=== PATIENT | female | born 1975 | race African-American/Black ===

== ENCOUNTER 2017-09-21 12:37 | Outpatient (CLI) | payer OTHER ==
[2017-09-21 13:22] LABS: Bilirubin Negative (Negative); Blood, Urine Negative (Negative); Glucose, Urine (Dipstick) Negative (Negative); Ketone, Urine Negative (Negative); Nitrite Negative (Negative); Protein, Urine (Dipstick) Negative (Neg-Trace)
[2017-09-21 13:24] LABS: Hematocrit 38.1 % (36.0-47.0); Mean Platelet Volume 8.6 fL (7.4-10.4); Red Blood Cell (RBC) Count 4.53 mill/uL (4.20-5.40); White Blood Cell (WBC) Count 9.7 thou/uL (4.8-10.8)
[2017-09-21 13:33] LABS: Bacteria/HPF 1+ HPF (None Seen); Hyaline Casts/LPF 0-3 HYALINE CAST LPF (0-3 Hyaline); RBC/HPF 0-3 HPF (0-3); WBC/HPF 0-3 HPF (0-3)
== END 2017-09-21 12:38 | disposition home or self-care (01) ==
LOC: LABBT 12:37
PROVIDERS: ATTEND Obstetrics & Gynecology
DX: Z01.812 Encounter for preprocedural laboratory examination (principal); D25.9 Leiomyoma of uterus, unspecified; N92.0 Excessive and frequent menstruation with regular cycle
CPT/HCPCS: 81001; 84703; 85027

== ENCOUNTER 2017-09-27 05:42 | Inpatient (IN) | payer OTHER ==
[2017-09-21 13:08] VITALS: BMI 58.0
[2017-09-27] MEDS ORDERED: CEFAZOLIN/Water 2 GM/20 ML SYRINGE ONE (06:33)
[2017-09-27] MEDS ORDERED: Thrombin 5000 UNITS/5 ML VIAL ONE (06:35)
[2017-09-27] MEDS ORDERED: Calcium Chloride 1 GM/10 ML Abboject SYRINGE ONE (06:35)
[2017-09-27] MEDS ORDERED: Bupivacaine/Epinephrine 0.25% 30 ML VIAL ONE (06:35)
[2017-09-27] MEDS ORDERED: Midazolam HCl 2 mg/2 ml Vial ONE (06:55)
[2017-09-27] MEDS ORDERED: Fentanyl 100 MCG/2 ML VIAL ONE ×3 (06:55→12:07)
[2017-09-27] MEDS ORDERED: Meperidine HCl/PF 25 MG/ML VIAL ONE (12:12)
[2017-09-27] MEDS ORDERED: Ondansetron HCl/PF 4 MG/2 ML Vial IVP PRN ×2 (12:16→13:09)
[2017-09-27] MEDS ORDERED: Promethazine HCl 25 MG/ML VIAL IM/IV PRN (12:16)
[2017-09-27] MEDS ORDERED: Meperidine HCl/PF 25 MG/ML VIAL IV PRN (12:16)
[2017-09-27] MEDS ORDERED: Non-Formulary Medication 1 EACH PO PRN (12:16)
[2017-09-27] MEDS ORDERED: Meperidine HCl/PF 25 MG/ML VIAL SLOW IVP PRN (12:16)
[2017-09-27] MEDS ORDERED: HYDROmorphone 2 MG/ML VIAL SLOW IVP PRN (12:16)
[2017-09-27] MEDS ORDERED: Acetaminophen/Codeine 30-300mg Tablet PO PRN (13:09)
[2017-09-27] MEDS ORDERED: Zolpidem Tartrate 5 MG TAB PO PRN (13:09)
[2017-09-27] MEDS ORDERED: Acetaminophen 325 MG TAB PO PRN (13:09)
[2017-09-27] MEDS ORDERED: diphenhydrAMINE 25 MG CAP PO PRN (13:09)
[2017-09-27] MEDS ORDERED: Bisacodyl 10 MG SUPP PR PRN (13:09)
[2017-09-27] MEDS: Ibuprofen 800 MG TAB PO SCH (14:01)
[2017-09-27] MEDS: Ketorolac Tromethamine 30 MG/ML VIAL IVP SCH ×3 (14:06→23:49)
[2017-09-27] MEDS: Lactated Ringer's 1,000 ML IV SCH (14:06)
[2017-09-27] MEDS ORDERED: Dexamethasone 20 MG/5 ML VIAL ONE (14:16)
[2017-09-27] MEDS ORDERED: Ondansetron HCl/PF 4 MG/2 ML Vial ONE (14:16)
[2017-09-27] MEDS ORDERED: diphenhydrAMINE 50 MG/ML VIAL ONE (14:16)
[2017-09-27] MEDS ORDERED: Metoclopramide HCl 10 MG/2 ML VIAL ONE (14:16)
[2017-09-27] MEDS ORDERED: Esmolol 100 MG/10 ML VIAL ONE (14:16)
[2017-09-27] MEDS ORDERED: Ketorolac Tromethamine 30 MG/ML VIAL ONE (14:16)
[2017-09-27] MEDS ORDERED: Propofol 200 MG/20 ML VIAL ONE (14:16)
[2017-09-27] MEDS ORDERED: Lidocaine 1% PF 5 ML VIAL ONE (14:16)
[2017-09-27] MEDS: Acetaminophen/Codeine 30-300mg Tablet PO PRN (23:49)
[2017-09-27] MEDS: Simethicone Chewable 80 MG TAB PO PRN (23:51)
[2017-09-28] MEDS: Lactated Ringer's 1,000 ML IV SCH ×3 (00:12→14:13)
[2017-09-28] MEDS: Ibuprofen 800 MG TAB PO SCH ×4 (00:13→14:12)
[2017-09-28 05:37] LABS: Mean Platelet Volume 8.5 fL (7.4-10.4); Red Blood Cell (RBC) Count 3.73 mill/uL (4.20-5.40); White Blood Cell (WBC) Count 11.9 thou/uL (4.8-10.8)
[2017-09-28] MEDS: Ketorolac Tromethamine 30 MG/ML VIAL IVP SCH ×3 (06:06→18:19)
[2017-09-28] MEDS: Acetaminophen/Codeine 30-300mg Tablet PO PRN ×3 (07:42→19:46)
[2017-09-28] MEDS: Simethicone Chewable 80 MG TAB PO PRN (17:38)
[2017-09-28] MEDS ORDERED: Adacel (T-DAP) 0.5 ML VIAL IM ONE (18:15)
[2017-09-28] MEDS ORDERED: Lanolin Ointment 7 GM TUBE TOP PRN (18:15)
[2017-09-28] MEDS ORDERED: LR / Pitocin 40 units/1000 ml 1,000 ML IV SCH (18:15)
[2017-09-28] MEDS ORDERED: Benzocaine/Menthol 20-0.5% 60 ML CAN TOP PRN (18:15)
[2017-09-28] MEDS ORDERED: Bisacodyl 10 MG SUPP PR PRN (18:15)
[2017-09-28] MEDS ORDERED: diphenhydrAMINE 25 MG CAP PO PRN (18:15)
[2017-09-28] MEDS ORDERED: Ondansetron HCl/PF 4 MG/2 ML Vial IVP PRN (18:15)
[2017-09-28] MEDS ORDERED: Zolpidem Tartrate 5 MG TAB PO PRN (18:15)
[2017-09-28] MEDS ORDERED: Misoprostol 200 MCG TAB VAG SCH (18:15)
[2017-09-28] MEDS ORDERED: Acetaminophen/Codeine 30-300mg Tablet PO PRN ×2 (18:15)
[2017-09-28] MEDS ORDERED: Preparation H Ointment 28 GM TUBE PR PRN (18:15)
[2017-09-28] MEDS ORDERED: Milk Of Magnesia 30 ML UDCUP PO PRN (18:15)
[2017-09-28] MEDS ORDERED: Docusate (Surfak) 240 MG CAP PO SCH (21:00)
[2017-09-28] MEDS ORDERED: Ibuprofen 800 MG TAB PO SCH (22:00)
[2017-09-29] MEDS: Acetaminophen/Codeine 30-300mg Tablet PO PRN ×2 (00:29→09:03)
[2017-09-29] MEDS: Ibuprofen 800 MG TAB PO SCH ×2 (00:30→07:25)
[2017-09-29] MEDS: Simethicone Chewable 80 MG TAB PO PRN (00:30)
[2017-09-29 05:25] LABS: Hematocrit 30.2 % (36.0-47.0); Mean Platelet Volume 8.4 fL (7.4-10.4); Red Blood Cell (RBC) Count 3.59 mill/uL (4.20-5.40)
[2017-09-29] MEDS ORDERED: Ferrous Sulfate 325 MG TAB PO SCH (08:00)
[2017-09-29 08:02] VITALS: BP 131/75
[2017-09-29 08:09] VITALS: TEMP 97.2
[2017-09-29] MEDS ORDERED: Prenatal Vitamin 1 TAB PO SCH (09:00)
--- NOTE | 2017-09-29 13:49 | OP ---
DATE OF PROCEDURE: 09/27/2017 ATTENDING STAFF PHYSICIAN: Matthew Fabian M.D. SURGEON: Matthew Fabian M.D. PREOPERATIVE DIAGNOSES: 1. Menorrhagia. 2. Severe dysmenorrhea. 3. Abdominal pelvic pain. 4. Uterine fibroids. 5. Adenomyosis. POSTOPERATIVE DIAGNOSES: 1. Menorrhagia. 2. Severe dysmenorrhea. 3. Abdominal pelvic pain. 4. Uterine fibroids. 5. Adenomyosis. 6. Extensive abdominal pelvic adhesions. PROCEDURES PERFORMED. 1. Diagnostic laparoscopy. 2. Extensive lysis of adhesions. 3. Robotic hysterectomy. 4. Bilateral salpingectomy. 5. Cystoscopy. 6. Autologous hemocyte tissue grafting (Plasmax). ANESTHESIA: General endotracheal. FINDINGS: 1. Uterine sound to 14 cm with enlarged uterus and findings consistent with fibroids and adenomyosis . 2. Extensive abdominal pelvic adhesions - omentum and bowel to the abdominal wall secondary to previ ous umbilical hernia repair with mesh, bilateral tubo-ovarian, anterior cul-de-sac secondary to histo ry of prior C-sections x3. 3. Normal bladder at cystoscopy with no pathology identified and patent ureters. COMPLICATIONS: None. SPECIMENS REMOVED: Cervix, uterus, fallopian tubes. BLOOD LOSS: 200 mL. PROCEDURE: After thorough consent and counseling, Ms. Ordaz was taken to the operating room and adeq uate level of anesthesia was obtained via general endotracheal anesthesia. A pelvic examination unde r anesthesia was performed. Exam was difficult secondary to the patient's body habitus (5 foot 0 inc hes and 310 pounds). The cervix was noted to be small and nulliparous. The uterus was enlarged and could be palpated above the pubic symphysis once the patient was relaxed. There was no fixation or n odularity in the cul-de-sac noted. Of significance, the patient had a subumbilical incision that was approximately 7 cm long from an open umbilical hernia repair with mesh. For this reason, the decisi on was made to proceed with diagnostic laparoscopy using an entry site above the umbilicus. The sammy ent was then prepped and draped in sterile fashion for both vaginal and abdominal surgery. Attention was then turned to performing the surgical procedure. A weighted speculum was placed in the vaginal canal and visualization of the cervix was obtained. A single-tooth tenaculum was placed on the anterior lip of the cervix for traction. The uterus sounded to 14 cm. A stay ligature of 0 Vicryl suture was placed on the cervix at the 3 o'clock and 9 o'cloc k position. Using Layne dilators, serial dilatation was performed. The BRENDA uterine manipulator was then placed within the endometrial cavity and the balloon was inflated. The cervical collar was car efully seated around the cervix. The stay ligature was then affixed to the BRENDA uterine manipulator. A St was placed in the bladder, which was noted to be draining clear urine. The vaginal balloon was then inflated. The speculum was removed from the vagina. Attention was then turned to performi ng the laparoscopic portion of the surgery. A supraumbilical incision was made approximately 4 cm above the umbilicus. The Veress needle was alejandra norris transabdominally with the usual safeguards carried out. Hanging drop water technique was utilize d to ensure proper placement of the Veress needle. Using CO2 gas as an insufflation medium, an adequ ate pneumoperitoneum was obtained using obese parameters. A 5 mm trocar and sleeve was then carefull y placed transabdominal with usual safeguards carried out. The 5 mm laparoscope was then carefully p laced transabdominally and visualization of the abdomen and the pelvis was obtained. There was a den se wall of omental and bowel adhesions noted directly below the umbilicus at the site where the mesh hernia repair had previously been performed. There were also omental and bowel adhesions noted throu ghout the lower abdomen. Photodocumentation was performed. We were able to visualize the site for l ateral trocar placement and this was performed under direct laparoscopic visualization utilizing illu mination technique to avoid vascular injuries. The lateral ports were then carefully placed with usu al safeguards carried out under direct visualization. The electrosurgical EndoShears were then used to perform the extensive lysis of adhesions, freeing the omentum, small bowel, and colon from the ant erior abdominal wall. Care was taken to use minimal thermal energy to avoid any inadvertent bowel in jury or thermal spread. Using the traction countertraction technique, enterolysis was performed free ing the adhesions and bowel from the anterior abdominal wall. There were also multiple filmy adhesio ns from the omentum to the anterior abdominal wall noted laterally, probably secondary to the previou s deliveries. The uterus was also noted to be densely adherent to the anterior abdominal wa ll by the adhesions from the descending colon to the fundus of the uterus and to the anterior abdomin al wall. Once again, care was taken to avoid thermal spread using meticulous enterolysis techniques. The extensive lysis of adhesions and enterolysis took greater than 2 hours to perform. The bowel w as carefully inspected and noted to be intact with no evidence of any inadvertent bowel injury. Hemo stasis was obtained on the omentum. Once the adhesions were all taken down, the uterus was elevated out of the pelvis utilizing the BRENDA uterine manipulator. The uterus measured approximately 12-14 we eks in size. The patient was noted to be status post a tubal ligation. The ovaries were adherent to the pelvic sidewalls bilaterally with filmy adhesions. There was essentially obliteration of the an terior cul-de-sac secondary to the patient's history of previous deliveries. The distal end of the fallopian tube was grasped on the right and followed to its fimbriated end. The tube was the n grasped at the tubo-ovarian ligament, crossclamped, coagulated and transected. Dissection was capps ied out through the mesosalpinx until the right fallopian tube was free. The same procedure was perf ormed on the left. The tubes were then removed from the operative field. Attention was then turned to performing lysis of adhesions and creation of a bladder flap anteriorly to avoid bladder injury. The bladder was very carefully taken down anteriorly and inferiorly. Once free from the uterus, the round ligament was grasped on the right, crossclamped, coagulated and transected. The vesicouterine peritoneum was then carefully taken down anteriorly and inferiorly in multiple passes. The same proc edure was performed on the left. The utero-ovarian ligament and vessels were then carefully isolated , crossclamped, coagulated and transected bilaterally. Using this same technique, serial pedicles we re taken through the broad ligament-cardinal ligament complex down to the level of the uterine vessel s bilaterally. The uterine vessels were carefully skeletonized bilaterally. Again, the bladder flap was carefully taken down, moving the bladder well out of the operative planes. Because of the exten sive adhesions, the bladder was instilled with warm normal saline to better identify the edges of the bladder. There were essentially no surgical planes which were easily defined secondary to the adhes ions from the previous deliveries. Once it was felt that the bladder was completely free, t he vessels were coagulated and transected bilaterally. During this process, the ureters were identif ied on the pelvic sidewalls and noted to be traversing while in the operative field. Once the bladde r was completely taken down, the endopelvic fascia was carefully circumscribed sharply using the elec trosurgical EndoShears. The vaginal canal was then entered sharply and the cervix and uterus were re moved from the remaining support structures. Once free, the uterus was advanced into the vagina to m aintain a pneumoperitoneum. The pelvis was then irrigated with copious amount of warm normal saline. The vaginal cuff was then closed with a running locking ligature of 0-Vicryl V-Loc suture. Good cu ff closure and integrity was noted. Hemostasis was obtained with meticulous Bovie cauterization. Th e pelvis was irrigated with copious amount of warm normal saline. All surgical sites were carefully examined and noted to be hemostatic. The ureters were carefully inspected once again and noted to be traversing well out of the operative planes. The upper abdomen was carefully irrigated with copious amount of warm normal saline. All surgical sites were once again noted to be hemostatic. Because o f the extensive dissection and lysis of adhesions, autologous hemocyte tissue grafting was performed. Platelet poor plasma was injected over the omentum and the mesh anteriorly on the abdominal wall wh ere previous hernia closure was performed. Platelet poor plasma was injected over the vaginal cuff a nd the bladder where the hysterectomy was performed. Once again, photodocumentation was performed. Attention was then turned to performing closure of the incisional porch. Using the suture guide and the GraNee needle, a 0 Vicryl suture was placed at the supraumbilical port site. Care was taken to incorporate the fascia utilizing the suture guide and a 0 Vicryl suture. T his was performed without difficulty. The other trocars and gas were removed from the abdomen. The incisions were then closed with a subcutaneous ligature of 2-0 plain and subcuticular ligatures of 4- 0 Monocryl. Each incision was then dressed with Dermabond. Lap, sponge, and needle counts were shannon ect x3. Estimated blood loss during this portion of the surgery was approximately 200 mL. Attention was then turned to performing postoperative cystoscopy to ensure integrity of the bladder. The patient was given an amp of methylene blue intravenously by the Anesthesia team. The cervix and uterus were removed from the vaginal canal. The St was removed from the bladder, which was noted to be draining clear urine. The cystoscope was then placed within the bladder using warm normal sali ne as an insufflation medium. The landmarks of the bladder were identified. The bladder was careful ly inspected and there was no evidence of any inadvertent bladder injury upon removal of the cervix a nd uterus and lysis of adhesions. The ureters were carefully identified and noted to be spilling jerry e urine shortly after administration of the blue dye. Photodocumentation was performed. The cystosc ope was then removed from the bladder. The St was replaced which was noted to be draining blue ur ine. The patient was then awakened, extubated, and taken to postanesthesia care unit in good conditi on. Immediately following surgery, the patient and family were made aware of the surgical procedure and operative findings. Questions were answered to their satisfaction.
--- NOTE | 2017-09-29 22:53 | DIS ---
DATE OF ADMISSION: 09/27/2017 DATE OF DISCHARGE: 09/29/2017 ADMITTING DIAGNOSES: 1. Menorrhagia. 2. Severe dysmenorrhea. 3. Abdominopelvic pain. 4. Findings consistent with uterine fibroids and adenomyosis. POSTOPERATIVE DIAGNOSES: 1. Menorrhagia. 2. Severe dysmenorrhea. 3. Abdominopelvic pain. 4. Findings consistent with uterine fibroids and adenomyosis. 5. Extensive abdominopelvic adhesions. PROCEDURES PERFORMED: 1. Diagnostic laparoscopy. 2. Robotic hysterectomy. 3. Bilateral salpingectomy. 4. Extensive lysis of adhesions. 5. Autologous hemocyte tissue grafting. 6. Cystoscopy. DISCHARGE MEDICATIONS: 1. Motrin 800 mg 1 tablet p.o. q.8 hours x5 days scheduled, then b.i.d. x5 days scheduled, then once daily x5 days, then as needed q.8 hours p.r.n. cramps. 2. Tylenol No. 3 one tablet p.o. q.4 hours p.r.n. pain. 3. Duricef 500 mg 1 p.o. b.i.d. x7 days. 4. Diflucan 1 tablet weekly x3. INSTRUCTIONS: 1. No heavy lifting greater than 10-15 pounds. 2. No driving on pain medications. 3. Pelvic rest x6 weeks (no intercourse, douching, or tampons). 4. Notify physician for temperature greater than 100.6, severe abdominal pain or back pain, signs or symptoms of incisional infection, severe vaginal bleeding, or as necessary. 5. Follow up in 2 weeks for postoperative evaluation. HOSPITAL COURSE: Ms. Libby Ordaz is a pleasant 41-year-old black female, G3, P3, who is followed i n my clinic for gynecologic care. Libby was admitted to [facility] on the morning of 09/27/2017 with a diagnosis of menorrhagia and severe dysmenorrhea secondary to uterine f ibroids and findings consistent with adenomyosis. The patient had undergone a long trial of conserva tive medical therapy. In addition, the patient had previously undergone abdominal hernia repair with mesh and was having severe abdominopelvic pain in the site where that surgery had been performed. T he patient was taken to the operating room where she underwent a diagnostic laparoscopy, extensive ly sis of adhesions, robotic hysterectomy, bilateral salpingectomy, autologous hemocyte tissue grafting, and cystoscopy without problems or complications. In total, the surgery took in excess of 4 hours. Please see the operative report for summary. Libby had an uneventful and uncomplicated postoperative stay. Because of the extensive surgery, we were slow to advance her diet as she did have some upset stomach. She had some abdominal pain with nausea on the night of surgery, which resolved. She was unable to advance her diet until regular on the afternoon of the first postoperative day. For this reason, decision was made to admit her for a second night and observe her closely. With this additional time, she quickly defervesced and felt mu ch better on the morning of the second postoperative day. She was discharged home on the morning of the second postoperative day with the above noted prescriptions and precautions. She was ambulating, voiding, and tolerating p.o. well. She had no nausea at the time of discharge. She walked in the h all several times and had normal activity levels. She was given strict precautions and will follow u p with us in 2 weeks for postoperative evaluation. The patient was very appreciative of the care juanita massimod here at [facility] and she will follow up as scheduled.
== END 2017-09-29 10:20 | disposition home or self-care (01) | DRG 743 ==
LOC: SDC 05:42 → 3SE 10:30
PROVIDERS: ADMIT Obstetrics & Gynecology; ATTEND Obstetrics & Gynecology
PROC: 0UT94ZZ Resection of Uterus, Percutaneous Endoscopic Approach (ICD-10-PCS; principal; 2017-09-27)
PROC: 0UTC4ZZ Resection of Cervix, Percutaneous Endoscopic Approach (ICD-10-PCS; 2017-09-27)
PROC: 0UT74ZZ Resection of Bilateral Fallopian Tubes, Percutaneous Endoscopic Approach (ICD-10-PCS; 2017-09-27)
PROC: 0JR Subcutaneous Tissue and Fascia, Replacement (ICD-10-PCS; 2017-09-27)
PROC: 0TJB8ZZ Inspection of Bladder, Via Natural or Artificial Opening Endoscopic (ICD-10-PCS; 2017-09-27)
PROC: 0JBB3ZZ Excision of Perineum Subcutaneous Tissue and Fascia, Percutaneous Approach (ICD-10-PCS; 2017-09-27)
PROC: 8E0W0CZ Robotic Assisted Procedure of Trunk Region, Open Approach (ICD-10-PCS; 2017-09-27)
DX: D25.9 Leiomyoma of uterus, unspecified (principal); K66.0 Peritoneal adhesions (postprocedural) (postinfection); N80.0 Endometriosis of uterus; N92.0 Excessive and frequent menstruation with regular cycle; N94.6 Dysmenorrhea, unspecified
CPT/HCPCS: 36415; 85027; 88307; J0131; J1100; J1170; J1200; J1885; J2001; J2175; J2250; J2405; J2704; J2765; J3010; Q9968

== ENCOUNTER 2017-10-13 11:35 | Outpatient (CLI) | payer OTHER ==
--- NOTE | 2017-10-13 13:24 | RAD ---
LEFT RIBS SERIES: Comparison: None. History: Bent over three days ago and felt a pop with left lateral rib pain. FINDINGS: Three views of the left ribs shows no evidence of acute fracture or dislocation. No expansile rib les ions are seen. No underlying pneumothorax or pleural effusion are seen. IMPRESSION: No significant left rib abnormality. POS: [facility]
== END 2017-10-13 11:36 | disposition home or self-care (01) ==
LOC: SCSRAD 11:35
PROVIDERS: ATTEND Nurse Practitioner Family
DX: R07.81 Pleurodynia (principal)

== ENCOUNTER 2018-03-02 12:54 | Outpatient (CLI) | payer OTHER ==
--- NOTE | 2018-03-02 13:56 | RAD ---
LEFT FOOT THREE VIEWS: HISTORY: A 42-year-old female with a history of left foot pain for two weeks without known trauma. FINDINGS: No fracture, dislocation, or other significant acute osseous abnormality. Small calcaneal Achilles e nthesophyte. IMPRESSION: Mild degenerative change without acute fracture or dislocation. POS: [facility]
== END 2018-03-02 12:55 | disposition home or self-care (01) ==
LOC: SCSRAD 12:54
PROVIDERS: ATTEND Nurse Practitioner Family
DX: M79.672 Pain in left foot (principal); M19.072 Primary osteoarthritis, left ankle and foot

== ENCOUNTER 2018-06-05 08:38 | Outpatient (CLI) | payer OTHER ==
--- NOTE | 2018-06-05 09:11 | RAD ---
PA AND LATERAL CHEST: History: Cough. FINDINGS: The heart size is borderline. The lungs are well expanded without lobar consolidation, pneumothorax, nirmal edema, or pleural effusions. No acute osseous abnormalities are seen. IMPRESSION: No acute process. POS: [facility]
== END 2018-06-05 08:39 | disposition home or self-care (01) ==
LOC: SCSRAD 08:38
PROVIDERS: ATTEND Nurse Practitioner Family
DX: J40 Bronchitis, not specified as acute or chronic (principal)
CPT/HCPCS: 71046

== ENCOUNTER 2018-08-25 12:43 | Outpatient (CLI) | payer OTHER | END 2018-08-25 12:44 | disposition home or self-care (01) | LOC: DTY/OP 12:43 | PROVIDERS: ATTEND Specialist | DX: Z01.818 Encounter for other preprocedural examination (principal); E66.01 Morbid (severe) obesity due to excess calories | CPT/HCPCS: 97802 ==

== ENCOUNTER 2018-10-09 15:00 | Inpatient (IN) | payer OTHER ==
[2018-10-12] MEDS ORDERED: Heparin 5,000 UNITS/ML VIAL ONE (06:17)
[2018-10-12] MEDS ORDERED: Ketorolac Tromethamine 30 MG/ML VIAL ONE (06:18)
[2018-10-12] MEDS ORDERED: Scopolamine 1.5 mg/72 hour Patch ONE (06:19)
[2018-10-12] MEDS ORDERED: cefOXitin Sodium/Dextrose,Iso 2 GM in Premix Bag 1 BAG IVPB SCH (06:30)
[2018-10-12] MEDS ORDERED: Fentanyl 250 MCG/5 ML VIAL ONE (06:31)
[2018-10-12] MEDS ORDERED: Bupivacaine/Epinephrine 0.25% 30 ML VIAL ONE (06:31)
[2018-10-12] MEDS ORDERED: Midazolam HCl 2 mg/2 ml Vial ONE (06:58)
[2018-10-12] MEDS ORDERED: Promethazine HCl 25 MG/ML VIAL SLOW IVP PRN (07:09)
[2018-10-12] MEDS ORDERED: Ondansetron HCl/PF 4 MG/2 ML Vial IVP PRN (07:09)
[2018-10-12] MEDS ORDERED: Promethazine HCl 25 MG/ML VIAL IM PRN ×2 (07:09→11:18)
[2018-10-12] MEDS ORDERED: PHENYLEPHRINE-NS 100 MCG/ML 10 ML SYRINGE ONE ×2 (08:42→13:16)
[2018-10-12] MEDS ORDERED: Fentanyl 100 MCG/2 ML VIAL ONE ×2 (08:58→10:03)
[2018-10-12] MEDS ORDERED: Promethazine HCl 25 MG/ML VIAL ONE (10:39)
[2018-10-12] MEDS ORDERED: Hydrocodone-Acetamin 15 ML UDCUP PO PRN (11:18)
[2018-10-12] MEDS ORDERED: Dextrose 5% in Water 1,000 ML IV PRN (11:18)
[2018-10-12] MEDS ORDERED: diphenhydrAMINE 50 MG/ML VIAL IVP PRN (11:18)
[2018-10-12] MEDS ORDERED: Dextrose 50% Abboject 50 ML SYRINGE SLOW IVP PRN (11:18)
[2018-10-12] MEDS ORDERED: hydrALAZINE 20 MG/ML VIAL SLOW IVP PRN (11:18)
[2018-10-12] MEDS ORDERED: Ondansetron PF 4 MG/2 ML Vial IVP PRN (11:18)
[2018-10-12] MEDS ORDERED: Morphine 4 MG/ML VIAL SLOW IVP PRN (11:18)
[2018-10-12] MEDS: Acetaminophen 1,000 MG in Premix Bag 1 BAG IVPB SCH ×3 (11:41→23:19)
[2018-10-12] MEDS: Ketorolac Tromethamine 30 MG/ML VIAL IVP SCH ×3 (11:45→23:19)
[2018-10-12] MEDS: D5 1/2 NS w/20 mEq KCL 1,000 ML IV SCH ×2 (11:49→18:29)
--- NOTE | 2018-10-12 13:04 | OP ---
DATE OF PROCEDURE: 10/12/2018 PREOPERATIVE DIAGNOSIS: Morbid obesity. POSTOPERATIVE DIAGNOSIS: Morbid obesity. PROCEDURE PERFORMED: Laparoscopic sleeve gastrectomy using the ViSiGi device. ANESTHESIA: General endotracheal per Dr. Shantel Sewell. INDICATIONS: The patient is a 42-year-old morbidly obese black female. She has undergone preoperative evaluation and education and presents at this time for sleeve gastrectomy. She has had appropriate preoperative weight loss per my request. DESCRIPTION OF OPERATION: Informed consent was obtained. The patient was taken to the operating room where general endotracheal anesthesia was obtained with the patient in supine position. Abdomen was prepped with ChloraPrep and draped in sterile fashion. Local anesthetic was infiltrated and 5 mm supraumbilical incision was created through which Veress needle was passed to the peritoneal cavity and pneumoperitoneum established using carbon dioxide up to a pressure of 15 mmHg. A 5 mm trocar port was passed through this same incision. Laparoscopic camera was passed through this port. Under direct vision, 4 additional ports were placed including bilateral 5 mm subcostal ports, a 12 mm right paramedian port and a 15 mm left paramedian port. A 5 mm epigastric incision was created through which Nathansen retractor was passed into the abdominal cavity and used to retract the left lobe of the liver. The patient was placed into reverse Trendelenburg position. The ViSiGi device was advanced within the stomach and used to decompress this. The pylorus was identified and beginning 4 cm proximal to the pylorus, the omentum and vascular tissue along the greater curvature was divided using the LigaSure in an ascending fashion up to the angle of His. All posterior adhesions were mobilized. The short gastric vessels were carefully divided and then hemostasis was maintained using the LigaSure. Once this was completely mobilized, the ViSiGi was carefully positioned at the level of the pylorus and placed to suction, which was clearly defining the lesser curvature of the stomach. The gastrectomy was then performed using a series of fires of the Tarlton stapler using a green load followed by a gold load and a series of blue loads until completion of the gastrectomy. The ViSiGi along the lesser curvature was used as a size 36 bougie to guide in the gastric division. Care was taken to avoid narrowing the incisura or the gastroesophageal junction. The integrity of the staple line was then assessed by insufflating gas through the ViSiGi while irrigating along the staple line. There was no evidence of an air leak. There was no evidence of bleeding along the staple line. The resected stomach was then removed through the 15 mm port and the fascia was closed with 0 Vicryl suture using a GraNee needle. I then closed the 12 mm port also using the GraNee needle and 0 Vicryl suture. The Nathansen retractor was removed. All ports and instruments were removed under direct vision. All irrigant was aspirated. Pneumoperitoneum was carefully evacuated. 0.25% Marcaine with epinephrine was infiltrated into each port site. Skin edges approximated with 4-0 Monocryl subcuticular suture. Dermabond was placed externally. There were no complications. The patient tolerated the procedure well and was taken to recovery room in stable condition. FINDINGS: She had typical intraabdominal anatomy. There were some fatty adhesions to her falciform ligament, that were taken down. I did have to place a retention suture around the falciform ligament to retract it out of the field. She had limited intraabdominal space and a small area inside her rib cage. I had to use the smaller Kenia retractor for this reason. In spite of the somewhat challenging intraabdominal anatomy, the operation was performed without any blood loss without any complications. There was no air leak. The clips were placed along the staple line to ensure appropriate hemostasis. The patient tolerated the procedure well and was taken to recovery room in stable condition. Job ID: [id number]
[2018-10-12] MEDS ORDERED: Lidocaine 1% PF 5 ML VIAL ONE (13:16)
[2018-10-12] MEDS ORDERED: Glycopyrrolate 0.2 MG/ML 5 ML SYRINGE ONE (13:16)
[2018-10-12] MEDS ORDERED: PROPOFOL 200 MG/20 ML VIAL ONE (13:16)
[2018-10-12] MEDS ORDERED: Metoclopramide HCl 10 MG/2 ML VIAL ONE (13:16)
[2018-10-12] MEDS ORDERED: Ondansetron PF 4 MG/2 ML Vial ONE (13:16)
[2018-10-12] MEDS ORDERED: Dexamethasone 20 MG/5 ML VIAL ONE (13:16)
[2018-10-12] MEDS: Morphine 2 MG/ML SYRINGE SLOW IVP PRN ×2 (14:58→20:51)
[2018-10-12 18:08] VITALS: BMI 60.1
[2018-10-12] MEDS ORDERED: Enoxaparin Sodium 40 MG/0.4 ML SYRINGE SC SCH (21:00)
[2018-10-13] MEDS: Morphine 2 MG/ML SYRINGE SLOW IVP PRN (02:53)
[2018-10-13] MEDS: D5 1/2 NS w/20 mEq KCL 1,000 ML IV SCH (02:57)
[2018-10-13] MEDS: Ketorolac Tromethamine 30 MG/ML VIAL IVP SCH (05:31)
[2018-10-13] MEDS: Acetaminophen 1,000 MG in Premix Bag 1 BAG IVPB SCH (05:33)
[2018-10-13 06:35] LABS: #Basophils 0.1 thou/uL (0.0-0.2); #Lymphocytes 2.7 thou/uL (1.20-3.40); #Monocytes 0.8 thou/uL (0.11-0.59); #Neutrophils 9.7 thou/uL (1.40-6.50); %Basophils 0.4 % (0.0-1.0); %Eosinophils 0.1 % (0.0-10.0); %Lymphocytes 20.3 % (21.0-51.0); %Monocytes 5.8 % (0.0-10.0); %Neutrophils 73.4 % (42.0-75.0); Hemoglobin 11.1 g/dL (12.0-16.0); Mean Corpuscular HGB CONC 32.1 g/dL (32.0-36.0); Mean Corpuscular Hemoglobin 25.8 pg (27.0-31.0); Mean Corpuscular Volume 80.4 fL (78.0-98.0); Mean Platelet Volume 9.6 fL (7.4-10.4); Platelet Count 294 thou/uL (130-400); RBC Distribution Width 13.8 % (11.5-14.5); Red Blood Cell (RBC) Count 4.31 mill/uL (4.20-5.40); White Blood Cell (WBC) Count 13.2 thou/uL (4.8-10.8)
[2018-10-13 06:54] LABS: Anion Gap 12 mmol/L (10-20); BUN (Urea Nitrogen) 9 mg/dL (7.0-18.7); Calc. Creatinine Clearance 221 mL/min (70-130); Calcium 9.9 mg/dL (7.8-10.44); Carbon Dioxide 25 mmol/L (22-29); Chloride 104 mmol/L (98-107); Estimated GFR-MDRD Greater than 90; Glucose 76 mg/dL (70-105); Potassium 4.2 mmol/L (3.5-5.1); Sodium 137 mmol/L (136-145)
[2018-10-13] MEDS ORDERED: Pantoprazole 40 MG VIAL IVP SCH (09:00)
[2018-10-13 11:36] VITALS: BP 135/83; TEMP 98.5
== END 2018-10-13 11:48 | disposition home or self-care (01) | DRG 621 ==
LOC: EDSTATUS 17:00 → SURG A 10-12 05:55 → SJJU 10-12 11:11
PROVIDERS: ADMIT Specialist; ATTEND Specialist
PROC: 0DB64Z3 Excision of Stomach, Percutaneous Endoscopic Approach, Vertical (ICD-10-PCS; principal; 2018-10-12)
DX: E66.01 Morbid (severe) obesity due to excess calories (principal); Z68.44 Body mass index [BMI] 60.0-69.9, adult; Z88.6 Allergy status to analgesic agent
CPT/HCPCS: 36415; 80048; 85025; 88307; 88312; 93005; 93010; 94760; C9113; J0131; J1100; J1644; J1650; J1885; J2001; J2250; J2270; J2405; J2550; J2704; J2765; J3010

== ENCOUNTER 2018-10-09 16:50 | Outpatient (CLI) | payer OTHER | END 2018-10-09 16:51 | disposition home or self-care (01) | LOC: LABBT 16:50 | PROVIDERS: ATTEND Specialist | DX: Z01.810 Encounter for preprocedural cardiovascular examination (principal); E66.01 Morbid (severe) obesity due to excess calories; Z68.44 Body mass index [BMI] 60.0-69.9, adult | CPT/HCPCS: 93005; 93010 ==

== ENCOUNTER 2018-10-30 09:35 | Inpatient (IN) | payer OTHER ==
[2018-10-30 10:33] LABS: #Basophils 0.1 thou/uL (0.0-0.2); #Eosinphils 0.3 thou/uL (0.0-0.7); #Lymphocytes 2.7 thou/uL (1.20-3.40); #Monocytes 0.5 thou/uL (0.11-0.59); #Neutrophils 6.2 thou/uL (1.40-6.50); %Basophils 0.5 % (0.0-1.0); %Eosinophils 2.6 % (0.0-10.0); %Lymphocytes 27.9 % (21.0-51.0); %Monocytes 5.4 % (0.0-10.0); %Neutrophils 63.5 % (42.0-75.0); Hemoglobin 11.1 g/dL (12.0-16.0); Mean Corpuscular HGB CONC 31.7 g/dL (32.0-36.0); Mean Corpuscular Hemoglobin 25.5 pg (27.0-31.0); Mean Corpuscular Volume 80.3 fL (78.0-98.0); Platelet Count 274 thou/uL (130-400); RBC Distribution Width 14.1 % (11.5-14.5); Red Blood Cell (RBC) Count 4.37 mill/uL (4.20-5.40); White Blood Cell (WBC) Count 9.8 thou/uL (4.8-10.8)
[2018-10-30 10:53] LABS: ALT (SGPT) 21 U/L (8-55); AST (SGOT) 20 U/L (5-34); Albumin 3.2 g/dL (3.5-5.0); Alkaline Phosphatase 68 U/L (40-150); Anion Gap 12 mmol/L (10-20); BUN (Urea Nitrogen) 6 mg/dL (7.0-18.7); Bilirubin, Total 0.4 mg/dL (0.2-1.2); Calc. Creatinine Clearance 0 mL/min (70-130); Calcium 8.9 mg/dL (7.8-10.44); Carbon Dioxide 22 mmol/L (22-29); Chloride 104 mmol/L (98-107); Estimated GFR-MDRD Greater than 90; Globulin 3.7 g/dL (2.4-3.5); Glucose 74 mg/dL (70-105); Lipase 141 U/L (8-78); Potassium 3.4 mmol/L (3.5-5.1); Protein, Total 6.9 g/dL (6.0-8.3); Sodium 135 mmol/L (136-145)
--- NOTE | 2018-10-30 10:53 | CT ---
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 COMPARISON: 10/30/2018 at 6:58 a.m. FINDINGS: There is appropriate enhancement of the solid organs. There is no evidence of bowel obstruction. Sy mmetric enhancement of the kidneys. No obstructive uropathy. Redemonstration of mesenteric fat stranding centrally. This fat stranding is centered at the level o f the superior mesenteric vein. Though there is limited contrast opacification, the possibility of t hrombophlebitis is still raised. PELVIC CT: No mass, lymphadenopathy, free air, or free fluid. No lytic or blastic lesions of the osseous struct ures. IMPRESSION: Poor contrast opacification of the venous system likely due to poor cardiac output. The current stud ies have an arterial phase of enhancement. Nevertheless, there is inflammatory change in the abdomin al mesentery center at the level of the superior mesenteric vein. 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 POS: [facility]
[2018-10-30] MEDS: Sodium Chloride 0.9% 1,000 ML IV SCH ×2 (12:37→22:08)
[2018-10-30] MEDS: Ondansetron PF 4 MG/2 ML Vial IVP PRN ×2 (12:37→18:21)
[2018-10-30] MEDS: Morphine 4 MG/ML VIAL SLOW IVP PRN ×3 (14:32→22:01)
[2018-10-30] MEDS ORDERED: Dextrose 50% Abboject 50 ML SYRINGE SLOW IVP PRN (17:03)
[2018-10-30] MEDS ORDERED: Dextrose 5% in Water 1,000 ML IV PRN (17:03)
[2018-10-30] MEDS ORDERED: Morphine 4 MG/ML VIAL SLOW IVP PRN (17:03)
[2018-10-30] MEDS: D5 1/2 NS w/20 mEq KCL 1,000 ML IV SCH (18:18)
[2018-10-30] MEDS: Apixaban 5 MG TAB PO SCH (20:12)
[2018-10-30] MEDS: Famotidine 20 MG TAB PO SCH (20:12)
[2018-10-30] MEDS: Enoxaparin Sodium 100 MG/ML SYRINGE SC SCH (20:13)
[2018-10-30] MEDS ORDERED: Enoxaparin Sodium 100 MG/ML SYRINGE SC SCH (21:00)
--- NOTE | 2018-10-30 22:17 | HP ---
CHIEF COMPLAINT: Abdominal pain with nausea and vomiting. HISTORY OF PRESENT ILLNESS: The patient is a 42-year-old black female, well known to myself from a laparoscopic vertical sleeve gastrectomy on October 12. She was doing well at home until 2 days ago. At that time, she suddenly began to develop some abdominal pain that she felt was periumbilical and seemed to radiate through to her back. She concurrently developed problems with nausea, with occasional vomiting. She had some dry heaving. She felt that the symptoms would resolve but when they had not by today, she presented to the emergency room in [place]. At that facility, she had a noncontrast CT scan and laboratory studies done. Her labs showed an elevated white blood cell count of 11.0 this morning with a hemoglobin of 13. Her metabolic profile revealed entirely normal electrolytes. Her albumin was normal at 3.9. Her lipase was slightly elevated at 159. CT scan of her abdomen, however, revealed an inflammatory focus in her central abdomen that seemed to be around her superior mesenteric vessels. Since the CT scan was performed without contrast, it was difficult to discern the anatomy. She was therefore transferred to this facility, where a CT scan with IV contrast was performed. Due to the phase timing of the contrast, it is still somewhat difficult to discern, however, it certainly looks like a thrombosed superior mesenteric vein. PAST MEDICAL HISTORY: 1. Morbid obesity with a preoperative BMI of 59 and weight of 305 pounds. 2. History of headaches. PAST SURGICAL HISTORY: x3, abdominal hernia repair in 2009, laparoscopic cholecystectomy in 2007, hysterectomy last year, and sleeve gastrectomy in October 12, 2018. MEDICATIONS: Include her bariatric vitamins. She is also taking a proton-pump inhibitor at home. ALLERGIES: TO TRAMADOL. PERSONAL AND SOCIAL HISTORY: She does not smoke. She drinks alcohol occasionally. She is . Her is present at bedside. She works as a medical officer. She has 3 children. She lives in [place]. REVIEW OF SYSTEMS: Otherwise unremarkable. FAMILY HISTORY: Noncontributory. PHYSICAL EXAMINATION: VITAL SIGNS: Temperature is 98.5, pulse is in the 70s and regular, blood pressure is 118/81, and oxygen saturation is 99% on room air. GENERAL: She is a well-developed, well-nourished, morbidly obese, black female, resting in bed. She reports some moderate discomfort. She is alert and oriented x3. HEAD, EYES, EARS, NOSE, AND THROAT: Unremarkable. NECK: Supple without mass or tenderness. LUNGS: Clear to auscultation throughout. CARDIAC: Regular rate and rhythm without murmur. ABDOMEN: Soft with no focal tenderness with palpation. Bowel sounds are present and normoactive. EXTREMITIES: Unremarkable. 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 She has already received her initial dose of 100 mg of Lovenox subcutaneously. She will receive another dose this evening. In the morning, I will initiate Eliquis at the elevated dose of 10 mg b.i.d. I would plan on this for the first couple of days and I will overlap this with the Lovenox for at least one day. I have encouraged her to resume her bariatric liquid diet and to ambulate frequently. I would anticipate that she will be in the hospital for at least 2 or 3 days. Job ID: [id number]
[2018-10-31] MEDS: D5 1/2 NS w/20 mEq KCL 1,000 ML IV SCH ×3 (01:38→11:33)
[2018-10-31] MEDS: Morphine 4 MG/ML VIAL SLOW IVP PRN (04:50)
[2018-10-31] MEDS: Ondansetron PF 4 MG/2 ML Vial IVP PRN ×2 (04:51→18:38)
[2018-10-31 06:36] LABS: #Eosinphils 0.3 thou/uL (0.0-0.7); #Lymphocytes 1.9 thou/uL (1.20-3.40); #Monocytes 0.5 thou/uL (0.11-0.59); #Neutrophils 4.2 thou/uL (1.40-6.50); %Basophils 0.6 % (0.0-1.0); %Eosinophils 4.4 % (0.0-10.0); %Lymphocytes 27.4 % (21.0-51.0); %Monocytes 7.5 % (0.0-10.0); %Neutrophils 60.2 % (42.0-75.0); Hemoglobin 11.1 g/dL (12.0-16.0); Mean Corpuscular HGB CONC 31.9 g/dL (32.0-36.0); Mean Corpuscular Hemoglobin 25.6 pg (27.0-31.0); Mean Corpuscular Volume 80.4 fL (78.0-98.0); Mean Platelet Volume 9.8 fL (7.4-10.4); Platelet Count 256 thou/uL (130-400); Red Blood Cell (RBC) Count 4.32 mill/uL (4.20-5.40)
[2018-10-31 06:55] LABS: Anion Gap 10 mmol/L (10-20); BUN (Urea Nitrogen) Less than 4 mg/dL (7.0-18.7); Calc. Creatinine Clearance 100 mL/min (70-130); Carbon Dioxide 25 mmol/L (22-29); Chloride 107 mmol/L (98-107); Estimated GFR-MDRD Greater than 90; Glucose 99 mg/dL (70-105); Potassium 3.8 mmol/L (3.5-5.1); Sodium 138 mmol/L (136-145)
[2018-10-31] MEDS: Apixaban 5 MG TAB PO SCH ×2 (09:03→20:03)
[2018-10-31] MEDS: Famotidine 20 MG TAB PO SCH ×2 (09:04→20:03)
[2018-10-31] MEDS: Multivitamins, Adult 10 ML, Folic Acid 1 MG, Thiamine HCl 100 MG in Dextrose 5 %-0.45 %... IV SCH (09:15)
--- NOTE | 2018-10-31 11:28 | PRG ---
DATE OF SERVICE: 10/31/2018 SUBJECTIVE: Ms. Ordaz was hospitalized yesterday with a new diagnosis of superior mesenteric vein thrombosis. She was started on anticoagulation yesterday with Lovenox and higher dose of Eliquis was started last night. Her Lovenox we will continue her on the higher dose Eliquis. She tells me she feels a little better today. She has less pain and little less nausea. She is ambulating well. She still notes some back pain. OBJECTIVE: VITAL SIGNS: On examination, she is afebrile, vital signs within normal limits. LUNGS: Clear to auscultation. ABDOMEN: Soft, nontender, and nondistended. LABORATORY DATA: CBC is normal. Hemoglobin is 11, white blood cell count of 7. Basic metabolic panel is entirely normal. ASSESSMENT: The patient is doing well with anticoagulation for superior mesenteric vein thrombosis. I anticipate continuing Eliquis 10 mg p.o. b.i.d. for 1 week and then transition her to 5 mg twice a day. I am hopeful that her symptoms will improve to the point that she will be stable for discharge home tomorrow. Job ID: [id number]
[2018-10-31] MEDS: Enoxaparin Sodium 100 MG/ML SYRINGE SC SCH (11:30)
[2018-10-31] MEDS: Hydrocodone-Acetamin 15 ML UDCUP PO PRN ×2 (11:31→21:16)
[2018-11-01] MEDS: D5 1/2 NS w/20 mEq KCL 1,000 ML IV SCH ×3 (02:55→08:30)
[2018-11-01] MEDS: Hydrocodone-Acetamin 15 ML UDCUP PO PRN ×2 (02:55→10:02)
[2018-11-01] MEDS: Famotidine 20 MG TAB PO SCH (08:31)
[2018-11-01] MEDS: Apixaban 5 MG TAB PO SCH (08:31)
[2018-11-01] MEDS: Multivitamins, Adult 10 ML, Folic Acid 1 MG, Thiamine HCl 100 MG in Dextrose 5 %-0.45 %... IV SCH (08:35)
[2018-11-01] MEDS: Ondansetron PF 4 MG/2 ML Vial IVP PRN (10:01)
[2018-11-01 11:39] VITALS: BP 129/81; TEMP 98
--- NOTE | 2018-11-01 14:34 | DIS ---
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 OPERATIONS/PROCEDURES PERFORMED: None. ADMISSION HISTORY: The patient is a 42-year-old morbidly obese black female with a BMI of almost 60. She underwent sleeve gastrectomy a little over two weeks ago. She developed abdominal pain over the weekend and presented to outside facility. CT scan was obtained with finding suggestive of superior mesenteric vein thrombosis. She was transferred to this facility, where CT scan was repeated with contrast, which confirmed the diagnosis. She was started initially on anticoagulation using Lovenox. She was transitioned into high-dose Eliquis and has been receiving Eliquis 100 mg p.o. b.i.d. She is encouraged to drink fluids and ambulate. She was hydrated intravenously. She notes that the pain is improved and she is tolerating liquids better. She believes she is ready for discharge home. DISCHARGE INSTRUCTIONS: If she is discharged home today, she is acceptable to return to work tomorrow. She is encouraged to drink fluids regularly to avoid dehydration. She was given discharge prescriptions for Prilosec, Eliquis, and hydrocodone elixir. I will see her back in 2 weeks in my office. I anticipate that she will require the Eliquis for at least 3 and maybe up to 6 months. Job ID: [id number]
[2018-11-01 15:08] VITALS: BMI 55.6
== END 2018-11-01 15:11 | disposition home or self-care (01) | DRG 442 ==
LOC: ERS 09:35 → OBSVTOIN 11:03 → SURG A 11:03
PROVIDERS: ADMIT Specialist; ATTEND Specialist
DX: I81 Portal vein thrombosis (principal); Z68.43 Body mass index [BMI] 50.0-59.9, adult; E66.01 Morbid (severe) obesity due to excess calories
CPT/HCPCS: 36415; 74177; 80048; 82150; 83605; 83690; 85025; 96360; J1650; J2270; J2405; J3411; J7042

== ENCOUNTER 2021-02-16 13:49 | Outpatient (CLI) | payer BC ==
[2021-02-16 15:40] LABS: ALT (SGPT) 20 U/L (8-55); AST (SGOT) 22 U/L (5-34); Albumin 4.3 g/dL (3.5-5.0); Alkaline Phosphatase 70 U/L (40-110); Anion Gap 14 mmol/L (10-20); BUN (Urea Nitrogen) 13 mg/dL (7.0-18.7); Bilirubin, Total 0.5 mg/dL (0.2-1.2); Calc. Creatinine Clearance 0 mL/min (70-130); Calcium 10.2 mg/dL (7.8-10.44); Carbon Dioxide 21 mmol/L (22-29); Chloride 103 mmol/L (98-107); Globulin 3.9 g/dL (2.4-3.5); Glucose 80 mg/dL (70-105); Potassium 4.4 mmol/L (3.5-5.1); Protein, Total 8.2 g/dL (6.0-8.3); Sodium 134 mmol/L (136-145)
[2021-02-16 16:58] LABS: #Basophils 0.1 10x3/uL (0.0-0.2); #Eosinphils 0.2 10x3/uL (0.0-0.5); #Monocytes 0.5 10x3/uL (0.0-1.1); #Neutrophils 4.2 10x3/uL (1.5-8.4); %Basophils 0.9 % (0.0-2.0); %Eosinophils 2.7 % (0.0-6.0); %Lymphocytes 36.5 % (18.0-47.0); %Monocytes 6.7 % (0.0-10.0); %Neutrophils 53.1 % (40.0-75.0); Hemoglobin 14.1 g/dL (12.0-15.5); Mean Corpuscular HGB CONC 32.5 g/dL (32.0-36.0); Mean Corpuscular Volume 86.3 fl (81.6-98.3); Mean Platelet Volume 11.7 fl (7.4-10.4); Platelet Count 283 10x3/uL (150-450); RBC Distribution Width 13.3 % (11.5-14.5); Red Blood Cell (RBC) Count 5.03 10x6/uL (3.90-5.03); White Blood Cell (WBC) Count 7.9 10x3/uL (3.5-10.5)
[2021-02-17 06:59] LABS: SARS-CoV-2 PCR by NAA Not Detected (NotDetected)
== END 2021-02-16 13:50 | disposition home or self-care (01) ==
LOC: LABBT 13:49
PROVIDERS: ATTEND Internal Medicine Cardiovascular Disease
DX: Z01.812 Encounter for preprocedural laboratory examination (principal); Z20.822 Contact with and (suspected) exposure to COVID-19
CPT/HCPCS: 36415; 80053; 83880; 85025; 87635; U0003; U0005

== ENCOUNTER 2021-02-19 05:40 | Day surgery (SDC) | payer BC ==
[2021-02-17 13:06] VITALS: BMI 44.8
[2021-02-19] MEDS ORDERED: Lidocaine 1% (PF) 30 ML VIAL ONE (06:54)
[2021-02-19] MEDS ORDERED: Heparin 10,000 UNITS/ 10 ML VIAL ONE (07:01)
[2021-02-19] MEDS ORDERED: Nitroglycerin 100MG/250ML BOT 250 ML ONE (07:01)
[2021-02-19] MEDS ORDERED: Verapamil 5 MG/2 ML VIAL ONE (07:01)
[2021-02-19] MEDS ORDERED: Midazolam HCl 2 mg/2 ml Vial ONE (07:37)
[2021-02-19] MEDS ORDERED: Fentanyl 100 MCG/2 ML VIAL ONE (07:37)
[2021-02-19] MEDS ORDERED: Acetaminophen/Codeine 30-300mg Tablet ONE (09:40)
[2021-02-19] MEDS ORDERED: Iopamidol 370 76% 100 ML VIAL ONE (12:13)
== END 2021-02-19 11:43 | disposition home or self-care (01) ==
LOC: CCL 05:40
PROVIDERS: ATTEND Internal Medicine Cardiovascular Disease
PROC: 4A023N7 Measurement of Cardiac Sampling and Pressure, Left Heart, Percutaneous Approach (ICD-10-PCS; principal; 2021-02-19)
PROC: B2111ZZ Fluoroscopy of Multiple Coronary Arteries using Low Osmolar Contrast (ICD-10-PCS; principal; 2021-02-19)
DX: I42.9 Cardiomyopathy, unspecified (principal); I50.22 Chronic systolic (congestive) heart failure; I44.7 Left bundle-branch block, unspecified; I49.3 Ventricular premature depolarization; Z79.899 Other long term (current) drug therapy; Z88.5 Allergy status to narcotic agent
CPT/HCPCS: 93458; 99152; J1644; J2001; J2250; J3010; Q9967

== ENCOUNTER 2021-10-14 04:34 | Observation (INO) | payer BC ==
[2021-10-14 05:36] LABS: #Eosinphils 0.2 thou/uL (0.0-0.7); #Lymphocytes 2.3 thou/uL (1.20-3.40); #Monocytes 0.4 thou/uL (0.11-0.59); #Neutrophils 3.1 thou/uL (1.40-6.50); %Basophils 0.4 % (0.0-1.0); %Eosinophils 3.9 % (0.0-10.0); %Lymphocytes 38.2 % (21.0-51.0); %Monocytes 6.1 % (0.0-10.0); %Neutrophils 51.4 % (42.0-75.0); Hemoglobin 13.7 g/dL (12.0-16.0); Mean Corpuscular HGB CONC 32.3 g/dL (32.0-36.0); Mean Platelet Volume 8.4 fL (7.4-10.4); Platelet Count 220 thou/uL (130-400); RBC Distribution Width 12.6 % (11.5-14.5); Red Blood Cell (RBC) Count 4.72 mill/uL (4.20-5.40); White Blood Cell (WBC) Count 6.1 thou/uL (4.8-10.8)
[2021-10-14] MEDS ORDERED: Ondansetron PF 4 MG/2 ML Vial ONE (05:38)
[2021-10-14 06:00] LABS: ALT (SGPT) 9 U/L (8-55); AST (SGOT) 15 U/L (5-34); Albumin 3.5 g/dL (3.5-5.0); Alkaline Phosphatase 52 U/L (40-110); Anion Gap 12 mmol/L (10-20); BUN (Urea Nitrogen) 10 mg/dL (7.0-18.7); Bilirubin, Total 0.3 mg/dL (0.2-1.2); Calc. Creatinine Clearance 0 mL/min (70-130); Calcium 9.2 mg/dL (7.8-10.44); Carbon Dioxide 23 mmol/L (22-29); Chloride 106 mmol/L (98-107); Globulin 3.7 g/dL (2.4-3.5); Glucose 85 mg/dL (70-105); Lipase 27 U/L (8-78); Potassium 3.7 mmol/L (3.5-5.1); Protein, Total 7.2 g/dL (6.0-8.3); Sodium 137 mmol/L (136-145)
[2021-10-14] MEDS ORDERED: Nitroglycerin 0.4 MG TAB (25 Tab Bottle) SL PRN (08:44)
[2021-10-14] MEDS ORDERED: Ondansetron PF 4 MG/2 ML Vial IVP PRN (08:46)
[2021-10-14] MEDS ORDERED: Ondansetron ODT 4 MG TAB PO PRN (08:46)
[2021-10-14] MEDS ORDERED: Lidocaine 2% Viscous Solution 10 ML, Aluminum & Magnesium Hydroxide 30 ML SSW SCH (09:30)
[2021-10-14] MEDS ORDERED: Aspirin Chewable 81 MG TAB ONE (09:50)
[2021-10-14] MEDS ORDERED: Famotidine 20 MG TAB ONE (09:50)
[2021-10-14 09:52] LABS: Troponin I Less than 0.010 ng/mL (< 0.028)
[2021-10-14] MEDS: Aspirin Chewable 81 MG TAB PO SCH (10:00)
[2021-10-14] MEDS: Famotidine 20 MG TAB PO SCH ×2 (10:00→20:31)
[2021-10-14 10:10] LABS: SARS-CoV-2 NAA Rapid Test Not Detected (NotDetected)
[2021-10-14] MEDS ORDERED: Carvedilol 6.25 MG TAB PO SCH ×2 (11:15→14:00)
[2021-10-14] MEDS: Acetaminophen 325 MG TAB PO PRN (12:17)
[2021-10-14] MEDS ORDERED: Acetaminophen 325 MG TAB ONE (12:18)
[2021-10-14 12:42] LABS: Troponin I Less than 0.010 ng/mL (< 0.028)
[2021-10-14 17:33] VITALS: BMI 46.0
[2021-10-14] MEDS: Carvedilol 6.25 MG TAB PO SCH (20:31)
[2021-10-15 05:35] LABS: #Eosinphils 0.2 thou/uL (0.0-0.7); #Lymphocytes 2.6 thou/uL (1.20-3.40); #Monocytes 0.4 thou/uL (0.11-0.59); #Neutrophils 2.7 thou/uL (1.40-6.50); %Basophils 0.8 % (0.0-1.0); %Eosinophils 4.1 % (0.0-10.0); %Lymphocytes 42.6 % (21.0-51.0); %Monocytes 7.4 % (0.0-10.0); %Neutrophils 45.2 % (42.0-75.0); Hemoglobin 12.2 g/dL (12.0-16.0); Mean Corpuscular HGB CONC 33.3 g/dL (32.0-36.0); Mean Corpuscular Hemoglobin 30.2 pg (27.0-31.0); Mean Corpuscular Volume 90.6 fL (78.0-98.0); Mean Platelet Volume 8.2 fL (7.4-10.4); Platelet Count 194 thou/uL (130-400); RBC Distribution Width 12.5 % (11.5-14.5); Red Blood Cell (RBC) Count 4.05 mill/uL (4.20-5.40)
[2021-10-15 05:54] LABS: Anion Gap 9 mmol/L (10-20); BUN (Urea Nitrogen) 10 mg/dL (7.0-18.7); Calc. Creatinine Clearance 157 mL/min (70-130); Calcium 8.8 mg/dL (7.8-10.44); Carbon Dioxide 24 mmol/L (22-29); Chloride 107 mmol/L (98-107); Glucose 76 mg/dL (70-105); Potassium 3.8 mmol/L (3.5-5.1); Sodium 136 mmol/L (136-145)
[2021-10-15] MEDS: Acetaminophen 325 MG TAB PO PRN (07:25)
[2021-10-15] MEDS: Aspirin Chewable 81 MG TAB PO SCH (07:25)
[2021-10-15] MEDS: Carvedilol 6.25 MG TAB PO SCH (07:26)
[2021-10-15] MEDS: Famotidine 20 MG TAB PO SCH (07:26)
[2021-10-15 11:43] VITALS: BP 136/62; TEMP 99.2
== END 2021-10-15 11:49 | disposition home or self-care (01) ==
LOC: ERS 04:34 → ERHOLD 08:45 → 2SW 17:14
PROVIDERS: ADMIT Family Medicine; ATTEND Internal Medicine
DX: R07.89 Other chest pain (principal); R00.2 Palpitations; I42.8 Other cardiomyopathies; M54.2 Cervicalgia; I50.9 Heart failure, unspecified; E66.01 Morbid (severe) obesity due to excess calories; Z68.42 Body mass index [BMI] 45.0-49.9, adult; Z79.899 Other long term (current) drug therapy; Z88.5 Allergy status to narcotic agent; Z20.822 Contact with and (suspected) exposure to COVID-19
CPT/HCPCS: 36415; 71045; 80048; 80053; 83690; 83735; 83880; 84443; 84484; 85025; 93005; 96374; G0378; J2405; Q0162; U0002

== ENCOUNTER 2023-05-24 21:45 | Observation (INO) | payer BC ==
[~2023-05-24 21:45] MED LIST: Iopamidol-370 76% 500 ML MDV (1 ML CHARGE) ONE
[2023-05-24 22:07] LABS: #Basophils 0.1 thou/uL (0.0-0.2); #Eosinphils 0.2 thou/uL (0.0-0.7); #Monocytes 0.6 thou/uL (0.11-0.59); #Neutrophils 4.1 thou/uL (1.40-6.50); %Basophils 0.5 % (0.0-1.0); %Eosinophils 2.5 % (0.0-10.0); %Lymphocytes 48.2 % (21.0-51.0); %Monocytes 6.2 % (0.0-10.0); %Neutrophils 42.3 % (42.0-75.0); Hemoglobin 11.6 g/dL (12.0-16.0); Mean Corpuscular Hemoglobin 28.6 pg (27.0-31.0); Mean Corpuscular Volume 89.6 fl (78.0-98.0); Mean Platelet Volume 11.1 fL (7.4-10.4); Platelet Count 267 10x3/uL (130-400); Red Blood Cell (RBC) Count 4.05 mill/uL (4.20-5.40); White Blood Cell (WBC) Count 9.6 10x3/uL (4.8-10.8)
[2023-05-24 22:21] LABS: ALT (SGPT) 27 U/L (8-55); AST (SGOT) 41 U/L (5-34); Albumin 3.5 g/dL (3.5-5.0); Alkaline Phosphatase 57 U/L (40-110); Anion Gap 15 mmol/L (10-20); BUN (Urea Nitrogen) 10 mg/dL (7.0-18.7); Bilirubin, Total 0.2 mg/dL (0.2-1.2); Calc. Creatinine Clearance 0 mL/min (70-130); Calcium 8.7 mg/dL (7.8-10.44); Carbon Dioxide 21 mmol/L (22-29); Chloride 106 mmol/L (98-107); Estimated GFR 68; Glucose 238 mg/dL (70-105); Potassium 3.5 mmol/L (3.5-5.1); Protein, Total 6.5 g/dL (6.0-8.3); Sodium 138 mmol/L (136-145)
[2023-05-24 22:44] LABS: Acetaminophen Less than 10 mcg/mL (10.0-30.0); Alcohol Less than 10.0 mg/dL (Less than 10); Salicylate Less than 8.0 mg/dL (15.0-30.0)
[2023-05-25 00:18] LABS: Bilirubin Negative (Negative); Blood, Urine Negative (Negative); CAUTI Indications for Culture Pelvic or flank pain; Clarity Clear (Clear); Glucose, Urine (Dipstick) Normal (Negative); Ketone, Urine Negative (Negative); Leukocyte 75 Leu/uL (Negative); Nitrite Negative (Negative); Protein, Urine (Dipstick) Negative (Neg-Trace); RBC/HPF 0-3 HPF (0-3); Squamous Epithelial 0-3 HPF (0-3); Urobilinogen Normal mg/dL (Less than 2); WBC/HPF 0-3 HPF (0-3); pH, Urine 6.5 (5.0-9.0)
[2023-05-25 00:19] LABS: Bacteria/HPF 1+ HPF (None Seen); Pregnancy Test - Urine (BHCG) Negative (Negative); Pregu Control Background? CLEAR/WHITE (CLR/WHITE); Pregu Control Bar Appear? YES (CONTROL BAR)
[2023-05-25 00:20] LABS: Urine Culture Reflex No No
[2023-05-25 00:39] LABS: Amphetamine Not Detected (NotDetected); Barbiturates Screen Not Detected (NotDetected); Benzodiazepine Screen Not Detected (NotDetected); Cocaine Metabolite Screen Not Detected (NotDetected); Methadone Not Detected (NotDetected); Methamphetamine Not Detected (NotDetected); Opiate Screen Not Detected (NotDetected); Oxycodone Screen Not Detected (NotDetected); Phencyclidine (PCP) Not Detected (NotDetected); THC/Cannabinoid Screen Not Detected (NotDetected); Tricyclic Screen Not Detected (NotDetected)
[2023-05-25] MEDS ORDERED: Mag-Al 1200 mg/1200 mg/30 ML UDCUP ONE (01:02)
[2023-05-25] MEDS ORDERED: Nitroglycerin 2% Ointment 1 INCH/1 GM Packet ONE (01:02)
[2023-05-25] MEDS ORDERED: Ondansetron PF 4 MG/2 ML Vial ONE (01:05)
[2023-05-25 04:02] VITALS: BMI 47.5
[2023-05-25 08:44] LABS: Troponin I 0.018 ng/mL (< 0.028)
[2023-05-25 09:06] LABS: Troponin I 0.019 ng/mL (< 0.028)
[2023-05-25] MEDS: Acetaminophen 325 MG TAB PO PRN ×2 (18:31→23:00)
[2023-05-25] MEDS: Mag-Al 1200 mg/1200 mg/30 ML UDCUP PO PRN ×2 (18:31→23:00)
[2023-05-25] MEDS: Sacubitril 49 MG/Valsartan 51 MG TABLET PO SCH (20:20)
[2023-05-25] MEDS: Carvedilol 6.25 MG TAB PO SCH (20:20)
[2023-05-26 08:35] LABS: Anion Gap 8 mmol/L (10-20); BUN (Urea Nitrogen) 8 mg/dL (7.0-18.7); Calc. Creatinine Clearance 104 mL/min (70-130); Carbon Dioxide 26 mmol/L (22-29); Chloride 106 mmol/L (98-107); Potassium 3.4 mmol/L (3.5-5.1); Sodium 137 mmol/L (136-145)
[2023-05-26 08:36] LABS: Calcium 8.4 mg/dL (7.8-10.44); Cholesterol 130 mg/dl (< 200 Desired); Estimated GFR 109; Glucose 70 mg/dL (70-105); HDL Cholesterol 43 mg/dL (>60 Neg Risk); LDL Cholesterol, Calculated 78 mg/dL; Triglycerides 44 mg/dL (Less than 150)
[2023-05-26] MEDS: Sacubitril 49 MG/Valsartan 51 MG TABLET PO SCH (08:42)
[2023-05-26] MEDS: Carvedilol 6.25 MG TAB PO SCH (08:42)
[2023-05-26 11:54] VITALS: BP 145/65; TEMP 98.4
== END 2023-05-26 13:26 | disposition home or self-care (01) ==
LOC: ERS 21:45 → 2SW 05-25 01:26
PROVIDERS: ADMIT Internal Medicine; ATTEND Internal Medicine
DX: G92.8 Other toxic encephalopathy (principal); I11.0 Hypertensive heart disease with heart failure; I50.22 Chronic systolic (congestive) heart failure; I42.9 Cardiomyopathy, unspecified; I08.9 Rheumatic multiple valve disease, unspecified; I44.7 Left bundle-branch block, unspecified; I73.9 Peripheral vascular disease, unspecified; E66.01 Morbid (severe) obesity due to excess calories; Z68.27 Body mass index [BMI] 27.0-27.9, adult; Z90.710 Acquired absence of both cervix and uterus; Z90.49 Acquired absence of other specified parts of digestive tract; Z98.84 Bariatric surgery status; Z88.6 Allergy status to analgesic agent
CPT/HCPCS: 36415; 36416; 71045; 71275; 74174; 80048; 80053; 80061; 80306; 80307; 81001; 81025; 83036; 83880; 84484; 85025; 85379; 93005; 93306; 96374; G0378; J2405; Q9967